=== PATIENT | female | born 1985 | race African-American/Black ===

== ENCOUNTER 2017-06-10 00:02 | Inpatient (IN) | payer OTHER, MEDICAID ==
[~2017-06-10] VITALS: Ht 149.9 cm; Wt 51.3 kg
[2017-06-10] MEDS ORDERED: DEXT 5%/LR + PITOCIN 20UNITS/L 1,000 ML IV SCH ×2 (01:10→21:03)
[2017-06-10] MEDS ORDERED: CARBOPROST TROMETHAMINE 250 MCG/ML AMPUL IM PRN (01:15)
[2017-06-10] MEDS ORDERED: BUTORPHANOL TARTRATE 2 MG/ML VIAL IV PRN ×2 (01:15→22:15)
[2017-06-10] MEDS ORDERED: NALOXONE HCL 0.4 MG/ML 1ML VIAL IM PRN (01:15)
[2017-06-10] MEDS ORDERED: LIDOCAINE HCL 1% 20ML VIAL (Pyxis) INJ INFIL SCH (01:15)
[2017-06-10] MEDS ORDERED: METHYLERGONOVINE MALEATE 0.2 MG/ML IM PRN (01:15)
[2017-06-10] MEDS ORDERED: MISOPROSTOL 100MCG TABLET VG SCH (01:15)
[2017-06-10] MEDS ORDERED: PNV1TABL76 MT (01:36)
[2017-06-10 01:38] LABS: BASOPHILS % 0.5 % (0.0-2.0); EOSINOPHILS % 1.3 % (0.0-5.0); HEMATOCRIT. 33.7 % (36.0-48.0); HEMOGLOBIN. 11.1 g/dL (12.0-16.0); LYMPHOCYTES % 16.9 % (20.0-50.0); MEAN CORPUSCULAR HEMOGLOBIN 28.3 pg (28.0-32.0); MEAN CORPUSCULAR VOLUME 85.9 fL (81.0-99.0); MEAN PLATELET VOLUME 9.5 fl (7.4-10.4); MONOCYTES % 5.9 % (2.0-8.0); NEUTROPHILS % 75.4 % (40.0-76.0); PLATELET 262 x1000/uL (130-400); RED BLOOD CELL COUNT 3.92 mill/uL (4.2-5.4); RED CELL DISTRIBUTION WIDTH 13.6 % (11.6-14.6)
[2017-06-10 01:40] LABS: CLARITY URINE CLEAR (CLEAR); COLOR URINE YELLOW (YELLOW); GLUCOSE URINE NEGATIVE (NEGATIVE); KETONES URINE NEGATIVE (NEGATIVE); LEUKOCYTE ESTERASE URINE TRACE (NEGATIVE); NITRITE URINE NEGATIVE (NEGATIVE); OCCULT BLOOD URINE NEGATIVE (NEGATIVE); PROTEIN URINE NEGATIVE (NEGATIVE); UROBILINOGEN URINE 0.2 E.U./dL (0.2-1.0)
[2017-06-10 01:46] LABS: INR 0.9; PARTIAL THROMBOPLASTIN TIME 28.1 sec (23.4-31.0); PROTHROMBIN TIME 9.7 sec (9.4-11.6)
[2017-06-10 01:50] LABS: *AMPHETAMINES SCREEN URINE NEGATIVE (NEGATIVE); *BARBITURATES SCREEN URINE NEGATIVE (NEGATIVE); *BENZODIAZEPINES SCREEN URINE NEGATIVE (NEGATIVE); *COCAINE SCREEN URINE NEGATIVE (NEGATIVE); CANNABINOID URINE SCREEN NEGATIVE (NEGATIVE); METHADONE URINE SCREEN NEGATIVE (NEGATIVE); OPIATES URINE SCREEN NEGATIVE (NEGATIVE); PHENCYCLIDINE URINE SCREEN NEGATIVE (NEGATIVE)
[2017-06-10] MEDS: BETAMETHASONE ACET/BETAMET 30 MG/5 ML VIAL IM SCH ×2 (01:54→14:02)
[2017-06-10] MEDS: LACTATED RINGERS 1,000 ML IV SCH ×2 (01:54→14:02)
[2017-06-10] MEDS: MAGNESIUM 20 G PREMIX (L & D) 500 ML IV SCH ×2 (01:56→14:05)
[2017-06-10] MEDS ORDERED: AMPICILLIN 2,000 MG in SODIUM CHLORIDE 0.9% 100 ML IV NR (06:00)
[2017-06-10 06:43] LABS: HEPATITIS B SURFACE ANTIGEN NEGATIVE; RUBELLA IGG 81.3 IU/mL (4.99-10)
[2017-06-10] MEDS: AMPICILLIN 2,000 MG in SODIUM CHLORIDE 0.9% 100 ML IV SCH ×2 (10:15→16:18)
[2017-06-10] MEDS ORDERED: METHYLERGONOVINE MALEATE 0.2 MG/ML ONE (12:27)
[2017-06-10] MEDS ORDERED: CARBOPROST TROMETHAMINE 250 MCG/ML AMPUL IM ONE (12:27)
[2017-06-10] MEDS ORDERED: FENTANYL CITRATE/PF 50MCG/ML 2ML VIAL ONE (20:59)
[2017-06-10] MEDS ORDERED: MORPHINE SULFATE/PF 1MG/ML 10ML AMP ONE (20:59)
[2017-06-10] MEDS ORDERED: ACETAMINOPHEN WITH CODEINE 300/30MG TABLET PO PRN (21:15)
[2017-06-10] MEDS ORDERED: BISACODYL 10MG SUPP PR PRN (21:15)
[2017-06-10] MEDS ORDERED: HEMORRHOIDAL SUPP PR PRN (21:15)
[2017-06-10] MEDS ORDERED: IBUPROFEN 400MG TABLET PO PRN (21:15)
[2017-06-10] MEDS ORDERED: DIPHENHYDRAMINE 25MG CAPSULE PO PRN (21:15)
[2017-06-10] MEDS ORDERED: HYDROMORPHONE HCL/PF 2MG/ML CPJ IM PRN (21:15)
[2017-06-10] MEDS ORDERED: LANOLIN OINT 0.25 GM TUBE TOP PRN (21:15)
[2017-06-10] MEDS ORDERED: HYDROCODONE/ACETAMINOPHEN 5/325MG TABLET PO PRN (21:15)
[2017-06-10] MEDS ORDERED: ONDANSETRON HCL 4MG/2ML VIAL IV PRN (21:15)
[2017-06-10] MEDS ORDERED: PHENYLEPHRINE HCL 10 MG/ML 1ML (IV VIAL) IV ONE (21:20)
[2017-06-10] MEDS ORDERED: GLYCOPYRROLATE 0.2 MG/ML 2ML VIAL ONE (21:21)
[2017-06-10] MEDS ORDERED: OXYTOCIN 10 UNITS/ML 1ML ONE ×2 (21:21→21:43)
[2017-06-10] MEDS ORDERED: CEFAZOLIN SODIUM 1000MG/VIAL ONE (21:21)
[2017-06-10] MEDS ORDERED: EPHEDRINE SULFATE 50MG/ML VIAL ONE (21:21)
[2017-06-10] MEDS ORDERED: MIDAZOLAM HCL 2 MG/2 ML VIAL ONE ×2 (21:51→21:54)
[2017-06-10] MEDS ORDERED: NALOXONE HCL 0.4 MG/ML 1ML VIAL IV PRN (22:15)
[2017-06-10] MEDS ORDERED: DIPHENHYDRAMINE 50MG/ML VIAL IV PRN (22:15)
[2017-06-10] MEDS ORDERED: FENTANYL CITRATE/PF 50MCG/ML 2ML VIAL IV PRN (22:15)
[2017-06-11] VITALS (14 sets, daily range): BP systolic 79–106; BP diastolic 46–62
[2017-06-11] MEDS: KETOROLAC 30MG/ML VIAL IV PRN ×2 (00:34→17:13)
[2017-06-11 07:32] LABS: HEMOGLOBIN. 10.8 g/dL (12.0-16.0); MEAN CORPUSCULAR HEMOGLOBIN 28.1 pg (28.0-32.0); MEAN CORPUSCULAR VOLUME 85.8 fL (81.0-99.0); MEAN PLATELET VOLUME 8.9 fl (7.4-10.4); PLATELET 251 x1000/uL (130-400); RED BLOOD CELL COUNT 3.85 mill/uL (4.2-5.4); RED CELL DISTRIBUTION WIDTH 13.6 % (11.6-14.6)
[2017-06-11] MEDS: MAGNESIUM/ALUMINUM HYDROXIDE/SIMETHICONE 30ML UDC PO SCH ×3 (09:00→22:50)
[2017-06-11] MEDS: PRENATAL VIT/FE FUMARATE/FA TABLET PO SCH ×2 (09:00→17:17)
[2017-06-11] MEDS: SIMETHICONE 80MG TABLET CHEW PO SCH ×5 (09:00→22:50)
[2017-06-11] MEDS: FERROUS SULFATE 325MG TABLET PO SCH ×2 (13:00→17:17)
[2017-06-11 13:01] LABS: PLATELET ESTIMATE NORMAL
[2017-06-11] MEDS ORDERED: GENTAMICIN 120MG PREMIX 100 ML IV SCH (19:15)
[2017-06-11] MEDS ORDERED: ZOSYN IVPB XX SCH (20:30)
[2017-06-11 20:51] LABS: CHLORIDE 110 mEq/L (98-107)
[2017-06-11 20:56] LABS: CARBON DIOXIDE 26 mEq/L (21-32)
[2017-06-11] MEDS ORDERED: AMPICILLIN 2,000 MG in SODIUM CHLORIDE 0.9% 100 ML IV SCH (21:00)
[2017-06-11] MEDS ORDERED: GENTAMICIN 120MG PREMIX 100 ML IV NR (21:00)
[2017-06-11] MEDS ORDERED: VANCOMYCIN 1 G PREMIX 200 ML IV NR (21:00)
[2017-06-11] MEDS ORDERED: PIPERACILLIN/TAZ 3.375G PREMIX 50 ML IV NR (21:00)
[2017-06-11] MEDS ORDERED: CLINDAMYCIN 900 MG in DEXTROSE 5% WATER 50 ML IV SCH (22:00)
[2017-06-11] MEDS ORDERED: NOREPINEPHRINE 4 MG in DEXT 5% WATER 250 ML IV PRN (22:47)
[2017-06-11] MEDS: DOCUSATE SODIUM 100MG CAPSULE PO SCH (22:49)
[2017-06-11] MEDS: SODIUM CHLORIDE 0.9% 1,000 ML IV SCH (23:06)
[2017-06-12] VITALS (50 sets, daily range): BP systolic 84–122; BP diastolic 26–75
[2017-06-12] MEDS ORDERED: PIPERACILLIN/TAZ 3.375G PREMIX 50 ML IV SCH (03:00)
[2017-06-12] MEDS: PIPERACILLIN/TAZ 3.375G PREMIX 50 ML IV SCH ×4 (03:41→20:16)
[2017-06-12 05:38] LABS: BASOPHILS % 0.2 % (0.0-2.0); EOSINOPHILS % 0.1 % (0.0-5.0); HEMATOCRIT. 28.9 % (36.0-48.0); HEMOGLOBIN. 9.7 g/dL (12.0-16.0); MEAN CORPUSCULAR HEMOGLOBIN 29.1 pg (28.0-32.0); MEAN CORPUSCULAR VOLUME 86.8 fL (81.0-99.0); MEAN PLATELET VOLUME 9.3 fl (7.4-10.4); MONOCYTES % 6.8 % (2.0-8.0); NEUTROPHILS % 82.9 % (40.0-76.0); PLATELET 215 x1000/uL (130-400); RED BLOOD CELL COUNT 3.33 mill/uL (4.2-5.4); RED CELL DISTRIBUTION WIDTH 13.7 % (11.6-14.6)
[2017-06-12] MEDS: SODIUM CHLORIDE 0.9% 1,000 ML IV SCH ×4 (06:07→20:25)
[2017-06-12] MEDS: MAGNESIUM/ALUMINUM HYDROXIDE/SIMETHICONE 30ML UDC PO SCH ×4 (07:00→20:16)
[2017-06-12] MEDS: SIMETHICONE 80MG TABLET CHEW PO SCH ×4 (09:57→20:16)
[2017-06-12] MEDS: FERROUS SULFATE 325MG TABLET PO SCH ×3 (09:57→17:51)
[2017-06-12] MEDS: VANCOMYCIN 1 G PREMIX 200 ML IV SCH ×2 (11:01→21:35)
[2017-06-12] MEDS ORDERED: ALUMINUM HYDROXIDE 120ML BOTTLE PO ONE (17:15)
[2017-06-12] MEDS ORDERED: MORPHINE SULFATE 2 MG/ML CPJ (NOT FOR IM USE) IV PRN (17:28)
[2017-06-12] MEDS: DOCUSATE SODIUM 100MG CAPSULE PO SCH (20:17)
[2017-06-13] VITALS (47 sets, daily range): BP systolic 98–146; BP diastolic 45–85
[2017-06-13] MEDS: SODIUM CHLORIDE 0.9% 1,000 ML IV SCH (03:07)
[2017-06-13] MEDS: PIPERACILLIN/TAZ 3.375G PREMIX 50 ML IV SCH ×4 (03:09→20:21)
[2017-06-13] MEDS: SIMETHICONE 80MG TABLET CHEW PO SCH ×4 (06:34→20:21)
[2017-06-13] MEDS: MAGNESIUM/ALUMINUM HYDROXIDE/SIMETHICONE 30ML UDC PO SCH (06:34)
[2017-06-13] MEDS: FERROUS SULFATE 325MG TABLET PO SCH (06:34)
[2017-06-13] MEDS: PRENATAL VIT/FE FUMARATE/FA TABLET PO SCH (08:31)
[2017-06-13] MEDS: VANCOMYCIN 1 G PREMIX 200 ML IV SCH ×2 (10:53→21:48)
[2017-06-13 16:31] LABS: BASOPHILS % 0.4 % (0.0-2.0); EOSINOPHILS % 0.5 % (0.0-5.0); HEMATOCRIT. 35.5 % (36.0-48.0); HEMOGLOBIN. 11.7 g/dL (12.0-16.0); MEAN CORPUSCULAR HEMOGLOBIN 28.8 pg (28.0-32.0); MEAN CORPUSCULAR VOLUME 87.3 fL (81.0-99.0); MEAN PLATELET VOLUME 9.3 fl (7.4-10.4); MONOCYTES % 5.2 % (2.0-8.0); NEUTROPHILS % 78.9 % (40.0-76.0); PLATELET 268 x1000/uL (130-400); RED BLOOD CELL COUNT 4.06 mill/uL (4.2-5.4); RED CELL DISTRIBUTION WIDTH 13.7 % (11.6-14.6)
[2017-06-13 16:40] LABS: CARBON DIOXIDE 23 mEq/L (21-32); CHLORIDE 112 mEq/L (98-107)
[2017-06-13] MEDS: POTASSIUM CHLORIDE 20MEQ/PACKET PO SCH (19:42)
[2017-06-13] MEDS: DOCUSATE SODIUM 100MG CAPSULE PO SCH (20:21)
[2017-06-14] VITALS (45 sets, daily range): BP systolic 82–158; BP diastolic 34–89
[2017-06-14] MEDS: PIPERACILLIN/TAZ 3.375G PREMIX 50 ML IV SCH ×3 (02:13→15:42)
[2017-06-14] MEDS: POTASSIUM CHLORIDE 20MEQ/PACKET PO SCH (09:16)
[2017-06-14] MEDS: SIMETHICONE 80MG TABLET CHEW PO SCH ×4 (09:16→21:17)
[2017-06-14] MEDS: PRENATAL VIT/FE FUMARATE/FA TABLET PO SCH (09:18)
[2017-06-14] MEDS: VANCOMYCIN 1 G PREMIX 200 ML IV SCH (09:19)
[2017-06-14 11:27] LABS: BASOPHILS % 0.5 % (0.0-2.0); EOSINOPHILS % 1.7 % (0.0-5.0); HEMATOCRIT. 39.7 % (36.0-48.0); HEMOGLOBIN. 13.1 g/dL (12.0-16.0); LYMPHOCYTES % 13.6 % (20.0-50.0); MEAN CORPUSCULAR HEMOGLOBIN 28.6 pg (28.0-32.0); MEAN CORPUSCULAR VOLUME 86.7 fL (81.0-99.0); MEAN PLATELET VOLUME 8.9 fl (7.4-10.4); MONOCYTES % 5.1 % (2.0-8.0); NEUTROPHILS % 79.1 % (40.0-76.0); PLATELET 319 x1000/uL (130-400); RED BLOOD CELL COUNT 4.58 mill/uL (4.2-5.4); RED CELL DISTRIBUTION WIDTH 13.6 % (11.6-14.6)
[2017-06-14] MEDS: DOCUSATE SODIUM 100MG CAPSULE PO SCH (21:17)
[2017-06-15] VITALS (19 sets, daily range): BP systolic 87–109; BP diastolic 32–85
[2017-06-15 06:06] LABS: BASOPHILS % 0.3 % (0.0-2.0); EOSINOPHILS % 2.5 % (0.0-5.0); HEMATOCRIT. 35.9 % (36.0-48.0); HEMOGLOBIN. 11.9 g/dL (12.0-16.0); MEAN CORPUSCULAR HEMOGLOBIN 28.6 pg (28.0-32.0); MEAN CORPUSCULAR VOLUME 86.1 fL (81.0-99.0); MONOCYTES % 5.3 % (2.0-8.0); NEUTROPHILS % 73.9 % (40.0-76.0); PLATELET 321 x1000/uL (130-400); RED BLOOD CELL COUNT 4.17 mill/uL (4.2-5.4); RED CELL DISTRIBUTION WIDTH 13.8 % (11.6-14.6)
[2017-06-15 06:31] LABS: CARBON DIOXIDE 27 mEq/L (21-32); CHLORIDE 107 mEq/L (98-107)
[2017-06-15] MEDS: POTASSIUM CHLORIDE 20MEQ/PACKET PO SCH (08:03)
[2017-06-15] MEDS: SIMETHICONE 80MG TABLET CHEW PO SCH ×2 (08:03→12:45)
[2017-06-15] MEDS: PRENATAL VIT/FE FUMARATE/FA TABLET PO SCH (08:03)
== END 2017-06-15 12:45 | disposition home or self-care (01) | DRG 540 ==
LOC: L&D 00:02 → OBSVTOIN 00:02 → L&D 07:17 → 7EST PP/OB 06-11 01:07 → MICUSO 06-11 21:00
PROVIDERS: ADMIT Obstetrics & Gynecology; ATTEND Obstetrics & Gynecology
PROC: 10D00Z1 Extraction of Products of Conception, Low, Open Approach (ICD-10-PCS; principal; 2017-06-10 20:57)
DX: O98.819 Other maternal infectious and parasitic diseases complicating pregnancy, unspecified trimester (principal); R65.21 Severe sepsis with septic shock; A41.9 Sepsis, unspecified organism; O60.14X0 Preterm labor third trimester with preterm delivery third trimester, not applicable or unspecified; O42.913 Preterm premature rupture of membranes, unspecified as to length of time between rupture and onset of labor, third trimester; O99.03 Anemia complicating the puerperium; L03.90 Cellulitis, unspecified; D64.9 Anemia, unspecified; O99.72 Diseases of the skin and subcutaneous tissue complicating childbirth; O76 Abnormality in fetal heart rate and rhythm complicating labor and delivery; Z37.0 Single live birth; Z3A.32 32 weeks gestation of pregnancy
CPT/HCPCS: 36415; 76805; 76818; 80048; 80202; 80305; 81001; 83735; 84145; 85025; 85610; 85730; 86592; 86703; 86762; 86850; 86900; 87040; 87086; 87340; 88307; 93005; 93970; J0171; J0290; J0690; J0702; J1580; J1885; J2210; J2250; J2270; J2274; J2370; J2405; J2543; J2590; J3010; J3370; J3475; J3490; J7030; J7050; J7060; J7120; A4315